=== PATIENT | female | born 1985 | race Caucasian/White ===

== ENCOUNTER 2019-06-17 21:55 | Emergency (ER) | payer OTHER ==
[~2019-06-17] VITALS: Ht 172.7 cm; Wt 59.0 kg
[2019-06-17] MEDS ORDERED: Permethrin60 GM TOP (23:25)
== END 2019-06-18 00:05 | disposition home or self-care (01) ==
LOC: ER 21:55
DX: B86 Scabies (principal)
CPT/HCPCS: 99282